=== PATIENT | female | born 1995 | race Two or more races ===

== ENCOUNTER 2017-06-21 10:31 | Emergency (ER) | payer MEDICAID ==
[~2017-06-21] VITALS: Ht 177.8 cm; Wt 69.9 kg
[2017-06-21 10:33] VITALS: BP 110/67
== END 2017-06-21 12:23 | disposition home or self-care (01) ==
LOC: ED 11:20
DX: S80.01XA Contusion of right knee, initial encounter (principal); X50.1XXA Overexertion from prolonged static or awkward postures, initial encounter; Y93.89 Activity, other specified; Y92.098 Other place in other non-institutional residence as the place of occurrence of the external cause; Y99.8 Other external cause status
CPT/HCPCS: 29505

== ENCOUNTER 2017-08-23 19:17 | Emergency (ER) | payer MEDICAID ==
[~2017-08-23] VITALS: Ht 175.3 cm; Wt 66.7 kg
[2017-08-23] MEDS ORDERED: SODIUM CHLORIDE FLUSH 10ML SYR IVF ONE (19:30)
[2017-08-23] MEDS ORDERED: SODIUM CHLORIDE 0.9% 1,000ML IVBOLUS ONE (19:30)
[2017-08-23] MEDS ORDERED: MECLIZINE CHEWABLE 25 MG TAB PO ONE (19:30)
[2017-08-23] MEDS ORDERED: ONDANSETRON 2MG/ML, 2ML IVPush ONE (19:30)
[2017-08-23] MEDS ORDERED: ONDANSETRON 2MG/ML, 2ML ONE (19:42)
[2017-08-23] MEDS ORDERED: MECLIZINE CHEWABLE 25 MG TAB ONE (19:42)
[2017-08-23 19:57] LABS: HEMATOCRIT 41.4 % (34.6-47.8); HEMOGLOBIN 13.6 g/dL (11.7-16.4); WHITE BLOOD COUNT 7.8 x10^3/uL (4.5-13.2)
[2017-08-23 20:05] LABS: BLOOD UREA NITROGEN 7 mg/dL (7-18)
[2017-08-23 20:21] VITALS: BP 112/68
== END 2017-08-23 20:26 | disposition home or self-care (01) ==
LOC: ED 20:20
DX: H81.10 Benign paroxysmal vertigo, unspecified ear (principal)
CPT/HCPCS: 36415; 80048; 82040; 84703; 85025; 93005; 96361; 96374; 99285; J2405; J7030

== ENCOUNTER 2017-09-03 20:56 | Emergency (ER) | payer MEDICAID ==
[~2017-09-03] VITALS: Ht 175.3 cm; Wt 65.1 kg
[2017-09-03 21:00] VITALS: BP 109/73
[2017-09-03 21:30] LABS: HCG UR LOT HCG7030192
[2017-09-03 21:44] LABS: PATH.CAST-FLAG NOT PRESENT; SPERM-FLAG NOT PRESENT; SRC-FLAG NOT PRESENT; XTAL-FLAG NOT PRESENT; YLC-FLAG NOT PRESENT
[2017-09-03 21:46] LABS: HCG UR OBC PASS
[2017-09-03] MEDS ORDERED: CIPROFLOXACIN 500 MG TABLET PO ONE (22:30)
[2017-09-03] MEDS ORDERED: PHENAZOPYRIDINE 200 MG TABLET PO ONE (22:30)
[2017-09-03] MEDS ORDERED: ONDANSETRON ODT 4 MG PO ONE (22:30)
[2017-09-03] MEDS ORDERED: PHENAZOPYRIDINE 100 MG TABLET ONE (22:38)
[2017-09-03] MEDS ORDERED: CIPROFLOXACIN 500 MG TABLET ONE (22:38)
[2017-09-03] MEDS ORDERED: ONDANSETRON ODT 4 MG ONE (22:38)
== END 2017-09-03 22:52 | disposition home or self-care (01) ==
LOC: ED 22:19
DX: N30.01 Acute cystitis with hematuria (principal)
CPT/HCPCS: 81001; 81025; 87077; 87086; 87186; 99284; Q0162

== ENCOUNTER 2017-10-02 18:46 | Emergency (ER) | payer MEDICAID ==
[~2017-10-02] VITALS: Ht 175.3 cm; Wt 64.4 kg
[2017-10-02 18:47] VITALS: BP 102/72
[2017-10-02] MEDS ORDERED: DEXAMETHASONE 4 MG TABLET ONE (19:13)
[2017-10-02] MEDS ORDERED: AMOXICILLIN 500 MG CAPSULE PO ONE (19:30)
[2017-10-02] MEDS ORDERED: DEXAMETHASONE 4 MG TABLET PO ONE (19:30)
== END 2017-10-02 19:44 | disposition home or self-care (01) ==
LOC: ED 18:59
DX: J02.0 Streptococcal pharyngitis (principal)
CPT/HCPCS: 99283

== ENCOUNTER 2018-02-04 23:13 | Emergency (ER) | payer MEDICAID ==
[~2018-02-04] VITALS: Ht 175.3 cm; Wt 65.2 kg
[2018-02-04 23:22] VITALS: BP 114/78
[2018-02-05] MEDS ORDERED: LIDOCAINE 1%, 20ML INFIL ONE (00:30)
[2018-02-05] MEDS ORDERED: LIDOCAINE-MPF 1%, 2ML ONE (00:58)
[2018-02-05] MEDS ORDERED: SILVER NITRATE STICK TP ONE ×2 (01:12→01:15)
[2018-02-05] MEDS ORDERED: MICROFIBRILLAR COLLAGEN 1 GM TP ONE (01:18)
[2018-02-05] MEDS ORDERED: MICROFIBRILLAR COLLAGEN 70X35X1 DRESSING TP ONE (02:00)
== END 2018-02-05 02:19 | disposition home or self-care (01) ==
LOC: ED 02-05 01:15
DX: S61.412A Laceration without foreign body of left hand, initial encounter (principal); W25.XXXA Contact with sharp glass, initial encounter; Y93.89 Activity, other specified; Y99.8 Other external cause status; Y92.009 Unspecified place in unspecified non-institutional (private) residence as the place of occurrence of the external cause
CPT/HCPCS: 12001; 99284

== ENCOUNTER 2018-07-10 14:45 | Emergency (ER) | payer MEDICAID ==
[~2018-07-10] VITALS: Ht 175.3 cm; Wt 66.0 kg
[2018-07-10 15:04] VITALS: BP 108/58
[2018-07-10] MEDS ORDERED: ONDANSETRON ODT 4 MG PO ONE (15:30)
== END 2018-07-10 15:37 | disposition left against medical advice (07) ==
LOC: ED 15:31
DX: R11.0 Nausea (principal)
CPT/HCPCS: 99281

== ENCOUNTER 2018-08-12 10:12 | Emergency (ER) | payer MEDICAID ==
[~2018-08-12] VITALS: Ht 175.3 cm; Wt 66.5 kg
[2018-08-12 10:15] VITALS: BP 99/62
== END 2018-08-12 11:14 | disposition home or self-care (01) ==
LOC: ED 10:40
DX: J02.8 Acute pharyngitis due to other specified organisms (principal); J00 Acute nasopharyngitis [common cold]; B97.89 Other viral agents as the cause of diseases classified elsewhere
CPT/HCPCS: 87081; 87880; 99284

== ENCOUNTER 2018-08-27 22:40 | Emergency (ER) | payer MEDICAID ==
[~2018-08-27] VITALS: Ht 175.3 cm; Wt 67.2 kg
[2018-08-27 23:01] VITALS: BP 109/75
[2018-08-27 23:11] LABS: HCG UR SG 1.004 (1.003-1.030); MICROSCOPIC AUTO
[2018-08-27 23:17] LABS: CULTURE INDICATED? YES
[2018-08-28] MEDS ORDERED: PHENAZOPYRIDINE 100 MG TABLET ONE ×2 (00:05→00:09)
[2018-08-28] MEDS ORDERED: NITROFURANTOIN (MACROBID) 100 MG CAPSULE ONE (00:05)
[2018-08-28] MEDS ORDERED: NITROFURANTOIN (MACROBID) 100 MG CAPSULE PO ONE (00:30)
[2018-08-28] MEDS ORDERED: PHENAZOPYRIDINE 200 MG TABLET PO ONE (00:30)
== END 2018-08-28 00:41 | disposition home or self-care (01) ==
LOC: ED 23:27
DX: N30.00 Acute cystitis without hematuria (principal)
CPT/HCPCS: 81001; 81025; 87077; 87086; 99284

== ENCOUNTER 2019-02-02 10:12 | Emergency (ER) | payer MEDICAID ==
[~2019-02-02] VITALS: Ht 175.3 cm; Wt 65.5 kg
[2019-02-02 10:26] VITALS: BP 127/89
[2019-02-02 11:08] LABS: RAPID INFLUENZA A Negative (Negative); RAPID INFLUENZA B Negative (Negative)
--- NOTE | 2019-02-02 11:32 | NUR ---
Patient/Caregiver given discharge instructions and they have confirmed that they understand the instructions. Patient ambulatory with steady gait.
== END 2019-02-02 11:34 | disposition home or self-care (01) ==
LOC: ED 11:31
DX: J02.8 Acute pharyngitis due to other specified organisms (principal); J06.9 Acute upper respiratory infection, unspecified; B97.89 Other viral agents as the cause of diseases classified elsewhere
CPT/HCPCS: 71046; 87081; 87400; 87880; 99284

== ENCOUNTER 2019-02-17 11:11 | Emergency (ER) | payer MEDICAID ==
[~2019-02-17] VITALS: Ht 175.3 cm; Wt 65.3 kg
[2019-02-17 11:13] VITALS: BP 101/68
[2019-02-17] MEDS ORDERED: DEXAMETHASONE 4 MG TABLET ONE (11:49)
[2019-02-17] MEDS ORDERED: DEXAMETHASONE 4 MG/ML, 1ML PO ONE (12:00)
[2019-02-17 12:17] LABS: RAPID INFLUENZA A Negative (Negative); RAPID INFLUENZA B Negative (Negative)
== END 2019-02-17 12:30 | disposition home or self-care (01) ==
LOC: ED 12:16
DX: B34.9 Viral infection, unspecified (principal)
CPT/HCPCS: 87400; 99283; J1100

== ENCOUNTER 2019-06-09 15:42 | Emergency (ER) | payer MEDICAID ==
[2019-06-09 15:59] VITALS: BP 112/71
== END 2019-06-09 16:18 | disposition home or self-care (01) ==
LOC: ED 16:15
DX: H60.501 Unspecified acute noninfective otitis externa, right ear (principal); H92.01 Otalgia, right ear
CPT/HCPCS: 99283

== ENCOUNTER 2019-06-16 22:04 | Emergency (ER) | payer MEDICAID ==
[~2019-06-16] VITALS: Ht 175.3 cm; Wt 66.2 kg
[2019-06-16 22:05] VITALS: BP 94/58
== END 2019-06-16 23:00 | disposition home or self-care (01) ==
LOC: ED 22:46
DX: N30.00 Acute cystitis without hematuria (principal)
CPT/HCPCS: 81001; 81025; 87077; 87086; 87186; 99283

== ENCOUNTER 2019-06-28 16:46 | Emergency (ER) | payer MEDICAID ==
[~2019-06-28] VITALS: Ht 175.3 cm; Wt 65.1 kg
[2019-06-28 16:49] VITALS: BP 107/63
== END 2019-06-28 20:05 | disposition left against medical advice (07) ==
LOC: ED 19:58
DX: N89.8 Other specified noninflammatory disorders of vagina (principal)
CPT/HCPCS: 99281

== ENCOUNTER 2019-06-29 00:29 | Emergency (ER) | payer MEDICAID ==
[~2019-06-29] VITALS: Ht 175.3 cm; Wt 65.1 kg
[2019-06-29 00:31] VITALS: BP 101/56
== END 2019-06-29 01:33 | disposition home or self-care (01) ==
LOC: ED 01:27
DX: N89.8 Other specified noninflammatory disorders of vagina (principal)
CPT/HCPCS: 99282

== ENCOUNTER 2019-12-27 15:49 | Emergency (ER) | payer MEDICAID ==
[~2019-12-27] VITALS: Ht 175.3 cm; Wt 64.0 kg
--- NOTE | 2019-12-27 16:30 | NUR ---
GUM DIPPER: PT TO ROOM FROM [facility].
--- NOTE | 2019-12-27 16:43 | NUR ---
PT CAME IN CO "WORST HEADACHE ABEL EVER HAD". DENIES LOC OR TRAUMA. Addendum: [facility] STATES SHE HAS TAKEN ADVIL AND TYLENOL WITH NO RELIEF. PT IS RESTING IN HOSPITAL BED ANDHER BROTHER IS BEDSIDE. LIGHTS HAVE BEEN DIMMED IN THE ROOM.
[2019-12-27] MEDS ORDERED: SODIUM CHLORIDE 0.9% 1,000 ML IV ONE (16:54)
[2019-12-27] MEDS ORDERED: MORPHINE SULFATE 4 MG/ML, 1ML IVPush PRN (17:00)
[2019-12-27] MEDS ORDERED: SODIUM CHLORIDE FLUSH 10ML SYR IVF ONE (17:00)
[2019-12-27] MEDS ORDERED: ONDANSETRON 2MG/ML, 2ML IVPush ONE (17:00)
[2019-12-27] MEDS ORDERED: ONDANSETRON 2MG/ML, 2ML ONE (17:19)
[2019-12-27] MEDS ORDERED: MORPHINE SULFATE 4 MG/ML, 1ML ONE (17:20)
[2019-12-27] MEDS ORDERED: PROMETHAZINE 25MG TABLET PO STA (17:31)
[2019-12-27] MEDS ORDERED: PROMETHAZINE 25MG TABLET ONE (17:39)
[2019-12-27] MEDS ORDERED: DIPHENHYDRAMINE 50 MG CAPSULE ONE (17:39)
[2019-12-27] MEDS ORDERED: IBUPROFEN 600 MG TABLET ONE (17:39)
[2019-12-27 17:44] VITALS: BP 98/60
--- NOTE | 2019-12-27 17:44 | NUR ---
TASK RN: PT SITTING UP IN LINDA MAIN NOTED. AWAKE/ALERT, GROSS NEURO INTACT. REPORTING 8/10 JUÁREZ. PT MEDICATED PER EMAR FOR PAIN.
[2019-12-27 17:48] LABS: BASOPHILS % (AUTO) 0 % (0-1); EOSINOPHILS # (AUTO) 0.04 x10^3/uL (0-0.4); EOSINOPHILS % (AUTO) 1 % (1-7); LYMPHOCYTES # (AUTO) 0.32 x10^3/uL (1-3.4); LYMPHOCYTES % (AUTO) 7 % (22-44); MD NO; MEAN CORPUSCULAR HGB CONC 33.3 g/dL (32.4-35.8); MEAN CORPUSCULAR VOLUME 90.1 fL (80-100); MEAN PLATELET VOLUME 8.4 fL (7.4-10.4); MONOCYTES # (AUTO) 0.27 x10^3/uL (0.2-0.8); MONOCYTES % (AUTO) 5 % (2-9); NEUTROPHILS # (AUTO) 4.26 x10^3/uL (1.8-6.8); NEUTROPHILS % (AUTO) 87 % (42-75); PLATELET COUNT 197 x10^3/uL (130-400); RED BLOOD COUNT 4.49 x10^6/uL (3.82-5.3); RED CELL DISTRIBUTION WIDTH 12.4 % (9.6-15.2)
[2019-12-27 17:58] LABS: ALBUMIN 3.8 g/dL (3.4-5.0); ANION GAP 6 mmol/L (5-15); CALCIUM 8.8 mg/dL (8.5-10.1); CHLORIDE 107 mmol/L (98-107)
[2019-12-27] MEDS ORDERED: DIPHENHYDRAMINE 50 MG CAPSULE PO ONE (18:00)
[2019-12-27] MEDS ORDERED: IBUPROFEN 600 MG TABLET PO ONE (18:00)
[2019-12-27 18:02] LABS: ALANINE AMINOTRANSFERASE 19 U/L (12-78); ALKALINE PHOSPHATASE 65 U/L (45-117); BILIRUBIN,TOTAL 0.6 mg/dL (0.2-1.0); C-REACTIVE PROTEIN, QUANT 0.18 mg/dL (0.02-0.49); CREATININE 0.67 mg/dL (0.55-1.02); TOTAL PROTEIN 7.9 g/dL (6.4-8.2)
== END 2019-12-27 19:05 | disposition home or self-care (01) ==
LOC: ED 18:50
DX: G43.009 Migraine without aura, not intractable, without status migrainosus (principal); H53.149 Visual discomfort, unspecified
CPT/HCPCS: 36415; 70450; 80053; 85025; 86140; 99284; Q0169

== ENCOUNTER 2019-12-28 13:59 | Emergency (ER) | payer MEDICAID ==
[~2019-12-28] VITALS: Ht 175.3 cm; Wt 63.0 kg
[2019-12-28 15:33] LABS: BASOPHILS # (AUTO) 0.01 x10^3/uL (0-0.1); BASOPHILS % (AUTO) 0 % (0-1); EOSINOPHILS # (AUTO) 0.01 x10^3/uL (0-0.4); EOSINOPHILS % (AUTO) 0 % (1-7); LYMPHOCYTES # (AUTO) 0.83 x10^3/uL (1-3.4); LYMPHOCYTES % (AUTO) 16 % (22-44); MD NO; MEAN CORPUSCULAR HEMOGLOBIN 30.2 pg (27.0-34.8); MEAN CORPUSCULAR HGB CONC 33.2 g/dL (32.4-35.8); MEAN CORPUSCULAR VOLUME 90.9 fL (80-100); MEAN PLATELET VOLUME 8.3 fL (7.4-10.4); MONOCYTES # (AUTO) 0.31 x10^3/uL (0.2-0.8); MONOCYTES % (AUTO) 6 % (2-9); NEUTROPHILS # (AUTO) 4.22 x10^3/uL (1.8-6.8); NEUTROPHILS % (AUTO) 78 % (42-75); PLATELET COUNT 170 x10^3/uL (130-400); RED BLOOD COUNT 4.38 x10^6/uL (3.82-5.3); RED CELL DISTRIBUTION WIDTH 12.6 % (9.6-15.2)
[2019-12-28 15:44] LABS: ALBUMIN 3.5 g/dL (3.4-5.0); ANION GAP 8 mmol/L (5-15); CALCIUM 8.2 mg/dL (8.5-10.1); CHLORIDE 106 mmol/L (98-107); CREATININE 0.78 mg/dL (0.55-1.02)
[2019-12-28] MEDS ORDERED: SODIUM CHLORIDE 0.9% 1,000 ML IV ONE (16:15)
[2019-12-28] MEDS ORDERED: SODIUM CHLORIDE 0.9% 1,000ML IVBOLUS ONE ×2 (16:30→19:00)
[2019-12-28] MEDS ORDERED: SODIUM CHLORIDE FLUSH 10ML SYR IVF ONE (16:30)
--- NOTE | 2019-12-28 16:42 | NUR ---
ORTHOSTATICS +, PIV INITITAEDM, FLUID BOLUS ADMINISTERED.
[2019-12-28 17:23] VITALS: BP 103/57
--- NOTE | 2019-12-28 18:36 | NUR ---
PT STILL TACHY ON MONITOR [id number]. DISCUSSED WITH ER PROVIDER WILL ADMIN ADDITIONAL FLUID BOLUS PRIOR TO DC
== END 2019-12-28 19:38 | disposition home or self-care (01) ==
LOC: ED 14:27
DX: I95.1 Orthostatic hypotension (principal); R42 Dizziness and giddiness; G43.909 Migraine, unspecified, not intractable, without status migrainosus
CPT/HCPCS: 36415; 80048; 82040; 84703; 85025; 93005; 96360; 96361; 99284; J7030

== ENCOUNTER 2020-01-01 19:51 | Emergency (ER) | payer MEDICAID ==
[~2020-01-01] VITALS: Ht 175.3 cm; Wt 64.5 kg
--- NOTE | 2020-01-01 20:13 | NUR ---
Placed vitals signs monitoring on pt. Pt taken to xray by tech.
[2020-01-01 20:38] LABS: ANION GAP 5 mmol/L (5-15); CALCIUM 9.1 mg/dL (8.5-10.1); CHLORIDE 105 mmol/L (98-107); CREATININE 0.63 mg/dL (0.55-1.02)
[2020-01-01 20:41] LABS: TROPONIN I < 0.015 ng/mL (0.000-0.045)
[2020-01-01] MEDS ORDERED: MECLIZINE CHEWABLE 25 MG TAB ONE (20:42)
--- NOTE | 2020-01-01 20:45 | NUR ---
pt medicated per mar
[2020-01-01 20:49] LABS: BASOPHILS # (AUTO) 0.04 x10^3/uL (0-0.1); BASOPHILS % (AUTO) 1 % (0-1); EOSINOPHILS # (AUTO) 0.08 x10^3/uL (0-0.4); EOSINOPHILS % (AUTO) 1 % (1-7); LYMPHOCYTES # (AUTO) 2.26 x10^3/uL (1-3.4); LYMPHOCYTES % (AUTO) 32 % (22-44); MD NO; MEAN CORPUSCULAR HEMOGLOBIN 30.3 pg (27.0-34.8); MEAN CORPUSCULAR HGB CONC 33.6 g/dL (32.4-35.8); MEAN CORPUSCULAR VOLUME 90.3 fL (80-100); MEAN PLATELET VOLUME 8.8 fL (7.4-10.4); MONOCYTES # (AUTO) 0.45 x10^3/uL (0.2-0.8); MONOCYTES % (AUTO) 6 % (2-9); NEUTROPHILS # (AUTO) 4.24 x10^3/uL (1.8-6.8); NEUTROPHILS % (AUTO) 60 % (42-75); PLATELET COUNT 225 x10^3/uL (130-400); RED BLOOD COUNT 4.58 x10^6/uL (3.82-5.3); RED CELL DISTRIBUTION WIDTH 12.3 % (9.6-15.2)
[2020-01-01] MEDS ORDERED: MECLIZINE CHEWABLE 25 MG TAB PO ONE (21:00)
--- NOTE | 2020-01-01 21:10 | NUR ---
ERP at bedside.
[2020-01-01 21:55] VITALS: BP 96/67
== END 2020-01-01 22:20 | disposition home or self-care (01) ==
LOC: ED 21:45
DX: R42 Dizziness and giddiness (principal); R07.89 Other chest pain; G43.909 Migraine, unspecified, not intractable, without status migrainosus
CPT/HCPCS: 36415; 71046; 80048; 84484; 85025; 93005; 99285

== ENCOUNTER 2020-02-24 19:15 | Emergency (ER) | payer MEDICAID ==
[~2020-02-24] VITALS: Ht 175.3 cm; Wt 65.9 kg
[2020-02-24 19:19] VITALS: BP 119/59
== END 2020-02-24 19:40 | disposition home or self-care (01) ==
LOC: ED 19:29
DX: J02.8 Acute pharyngitis due to other specified organisms (principal); B97.89 Other viral agents as the cause of diseases classified elsewhere
CPT/HCPCS: 99281

== ENCOUNTER 2020-12-09 13:59 | Emergency (ER) | payer MEDICAID ==
[~2020-12-09] VITALS: Ht 175.3 cm; Wt 66.2 kg
[2020-12-09] MEDS ORDERED: SODIUM CHLORIDE FLUSH 10ML SYR IVF ONE (15:00)
[2020-12-09] MEDS ORDERED: KETOROLAC 30 MG/1 ML IVPush ONE (15:00)
--- NOTE | 2020-12-09 15:04 | NUR ---
PT SITTING UP ON GURNEY, AOX4, REPORTS CHEST PAIN ONSET APPROX 3-4 DAYS AGO, WORSE WITH DEEP INSPIRATION AND INTERMITTENT SOB. NONRADIATING, DENIES PAIN WITH MOVEMENT, DENIES RECENT PHYSICAL EXERTION OR STRAIN. VITALS STABLE. PIV PLACED, LABS COLLECTED.
[2020-12-09 15:13] LABS: BASOPHILS % (AUTO) 1 % (0-1); EOSINOPHILS % (AUTO) 1 % (1-7); LYMPHOCYTES % (AUTO) 35 % (22-44); MEAN CORPUSCULAR HEMOGLOBIN 30.3 pg (27.0-34.8); MEAN CORPUSCULAR HGB CONC 33.9 g/dL (32.4-35.8); MEAN PLATELET VOLUME 8.4 fL (7.4-10.4); MONOCYTES % (AUTO) 6 % (2-9); NEUTROPHILS % (AUTO) 57 % (42-75); PLATELET COUNT 241 x10^3/uL (130-400)
[2020-12-09 15:14] LABS: MD NO
[2020-12-09 15:24] LABS: ALBUMIN 3.8 g/dL (3.4-5.0); ANION GAP 5 mmol/L (5-15); CALCIUM 9.6 mg/dL (8.5-10.1); CHLORIDE 107 mmol/L (98-107)
[2020-12-09 15:30] LABS: TROPONIN I < 0.015 ng/mL (0.000-0.045)
--- NOTE | 2020-12-09 16:33 | NUR ---
LABS RESULTED, VITALS STABLE, NO ACUTE DISTRESS NOTED.
[2020-12-09 17:03] VITALS: BP 104/56
--- NOTE | 2020-12-09 17:04 | NUR ---
TASK RN: PT DENIES PAIN AT THIS TIME,. Patient/Caregiver given discharge instructions and they have confirmed that they understand the instructions. Patient ambulatory with steady gait.
== END 2020-12-09 17:05 | disposition home or self-care (01) ==
LOC: ED 14:52
DX: R07.89 Other chest pain (principal); R94.31 Abnormal electrocardiogram [ECG] [EKG]; Z88.2 Allergy status to sulfonamides
CPT/HCPCS: 36415; 71045; 80048; 82040; 84484; 85025; 85379; 93005; 99285

== ENCOUNTER 2021-03-16 14:03 | Emergency (ER) | payer MEDICAID ==
[~2021-03-16] VITALS: Ht 175.3 cm; Wt 66.7 kg
--- NOTE | 2021-03-16 14:31 | NUR ---
computer methods analyst: pt fom lobby to room 29
[2021-03-16] MEDS ORDERED: ACETAMINOPHEN 325 MG TABLET ONE (15:27)
[2021-03-16] MEDS ORDERED: IBUPROFEN 200 MG TABLET ONE (15:27)
[2021-03-16] MEDS ORDERED: ACETAMINOPHEN 325 MG TABLET PO ONE (15:30)
[2021-03-16] MEDS ORDERED: IBUPROFEN 800 MG TABLET PO ONE (15:30)
[2021-03-16 15:31] VITALS: BP 100/61
== END 2021-03-16 15:40 | disposition home or self-care (01) ==
LOC: ED 15:30
DX: M26.622 Arthralgia of left temporomandibular joint (principal); G43.909 Migraine, unspecified, not intractable, without status migrainosus
CPT/HCPCS: 93005; 99283

== ENCOUNTER 2021-05-05 08:11 | Emergency (ER) | payer MEDICAID ==
[~2021-05-05] VITALS: Ht 175.3 cm; Wt 63.8 kg
[2021-05-05 08:30] VITALS: BP_DIAS 84
[2021-05-05 09:05] LABS: BASOPHILS % (AUTO) 0 % (0-1); EOSINOPHILS % (AUTO) 1 % (1-7); LYMPHOCYTES % (AUTO) 14 % (22-44); MEAN CORPUSCULAR HEMOGLOBIN 30.7 pg (27.0-34.8); MEAN PLATELET VOLUME 8.3 fL (7.4-10.4); MONOCYTES % (AUTO) 5 % (2-9); NEUTROPHILS % (AUTO) 80 % (42-75); PLATELET COUNT 277 x10^3/uL (130-400); RED BLOOD COUNT 4.64 x10^6/uL (3.82-5.3); RED CELL DISTRIBUTION WIDTH 12.1 % (9.6-15.2)
[2021-05-05 09:16] LABS: ALBUMIN 3.9 g/dL (3.4-5.0); ANION GAP 9 mmol/L (5-15); CALCIUM 9.6 mg/dL (8.5-10.1); CHLORIDE 107 mmol/L (98-107)
[2021-05-05 09:23] LABS: ALANINE AMINOTRANSFERASE 27 U/L (12-78); ALKALINE PHOSPHATASE 48 U/L (45-117); BILIRUBIN,TOTAL 0.5 mg/dL (0.2-1.0); CREATININE 0.74 mg/dL (0.55-1.02); TOTAL PROTEIN 8.8 g/dL (6.4-8.2)
[2021-05-05] MEDS ORDERED: SODIUM CHLORIDE 0.9% 1,000ML IVBOLUS ONE (09:30)
[2021-05-05] MEDS ORDERED: SODIUM CHLORIDE FLUSH 10ML SYR IVF ONE (09:30)
[2021-05-05] MEDS ORDERED: ONDANSETRON 2MG/ML, 2ML IVPush ONE (09:30)
--- NOTE | 2021-05-05 09:30 | NUR ---
trimming press operator: pt from lobby to room 17
--- NOTE | 2021-05-05 09:40 | NUR ---
AMBULAORY TO & FROM [facility] W/OUT INCIDENT: GAIT STEADY.
[2021-05-05] MEDS ORDERED: BIRTH CONTROL (10:24)
[2021-05-05 10:26] VITALS: BP_SYST 67
== END 2021-05-05 10:36 | disposition home or self-care (01) ==
LOC: ED 10:30
DX: R19.7 Diarrhea, unspecified (principal); R11.0 Nausea; R10.84 Generalized abdominal pain
CPT/HCPCS: 36415; 80053; 83690; 84703; 85025; 99283